=== PATIENT | female | born 1980 | race Caucasian/White ===

== ENCOUNTER 2017-03-15 21:21 | Emergency (ER) | payer OTHER | END 2017-03-15 22:59 | disposition home or self-care (01) | LOC: ER 21:21 | DX: N39.0 Urinary tract infection, site not specified (principal); F32.9 Major depressive disorder, single episode, unspecified; F17.210 Nicotine dependence, cigarettes, uncomplicated; Z90.49 Acquired absence of other specified parts of digestive tract; Z90.89 Acquired absence of other organs; Z98.51 Tubal ligation status; Z79.899 Other long term (current) drug therapy | CPT/HCPCS: 36415; 96361; 96374; 96375; J0696; J1885 ==